=== PATIENT | female | born 1940 | race Caucasian/White ===

== ENCOUNTER → 2016-12-13 | Outpatient (REF) | payer MEDICARE, OTHER ==
[2016-12-13 13:49] LABS: PERCENT SATURATION 24.5 % (13.2-37.4)
== END ==
LOC: M LAB REF 12:33
PROVIDERS: ATTEND Internal Medicine Medical Oncology
DX: D50.9 Iron deficiency anemia, unspecified (principal)

== ENCOUNTER → 2017-02-06 | Outpatient (CLI) | payer MEDICARE, BC, OTHER ==
[2017-02-06 15:06] LABS: MEAN CORPUSCULAR HEMOGLOBIN 31.6 pg (27.0-33.0); MEAN CORPUSCULAR VOLUME 95.8 fl (80.0-96.0); RED CELL DISTRIBUTION WIDTH 14.6 % (11.5-14.5); RETIC HEMOGLOBIN CONTENT CHr 32.8 PG (24-36); RETICULOCYTE % ADVIA2120 5.4 % (0.5-1.5); WHITE BLOOD COUNT 9.8 K/mm3 (4.0-10.0)
[2017-02-06 15:41] LABS: CALCIUM LEVEL 9.7 MG/DL (8.8-10.2); CREATININE FOR GFR 1.67 MG/DL (0.55-1.02); GLOMERULAR FILTRATION RATE 31.8 (>39); PERCENT SATURATION 17.9 % (13.2-37.4); POTASSIUM SERUM 3.9 MEQ/L (3.5-5.1)
== END ==
LOC: M LAB 14:03
PROVIDERS: ATTEND Internal Medicine Critical Care Medicine
DX: I50.9 Heart failure, unspecified (principal)

== ENCOUNTER → 2017-02-15 | Outpatient (REF) | payer MEDICARE, BC, OTHER | LOC: M LAB REF 16:09 | PROVIDERS: ATTEND Internal Medicine Medical Oncology | DX: D50.9 Iron deficiency anemia, unspecified (principal) ==

== ENCOUNTER → 2017-02-22 | Outpatient (REF) | payer MEDICARE, OTHER ==
[2017-02-22 20:01] LABS: PERCENT SATURATION 9.7 % (13.2-37.4)
== END ==
LOC: M LAB REF 17:17
PROVIDERS: ATTEND Internal Medicine Medical Oncology
DX: D50.9 Iron deficiency anemia, unspecified (principal)

== ENCOUNTER → 2017-03-08 | Outpatient (REF) | payer MEDICARE, OTHER ==
[2017-03-08 19:11] LABS: RETIC HEMOGLOBIN CONTENT CHr 30.5 PG (24-36); RETICULOCYTE % ADVIA2120 4.2 % (0.5-1.5)
[2017-03-08 19:24] LABS: PERCENT SATURATION 11.9 % (13.2-37.4)
== END ==
LOC: M LAB REF 16:57
PROVIDERS: ATTEND Internal Medicine Medical Oncology
DX: D50.9 Iron deficiency anemia, unspecified (principal)

== ENCOUNTER → 2017-04-05 | Outpatient (REF) | payer MEDICARE, OTHER ==
[2017-04-05 14:33] LABS: PERCENT SATURATION 16.5 % (13.2-37.4)
== END ==
LOC: M LAB REF 14:03
PROVIDERS: ATTEND Internal Medicine Medical Oncology
DX: D50.9 Iron deficiency anemia, unspecified (principal)

== ENCOUNTER → 2017-05-04 | Outpatient (REF) | payer MEDICARE, OTHER ==
[2017-05-04 19:37] LABS: PERCENT SATURATION 21.5 % (13.2-37.4)
== END ==
LOC: M LAB REF 16:52
PROVIDERS: ATTEND Internal Medicine Medical Oncology
DX: D50.9 Iron deficiency anemia, unspecified (principal)

== ENCOUNTER → 2017-06-12 | Outpatient (REF) | payer MEDICARE, OTHER | LOC: M LAB REF 18:30 | PROVIDERS: ATTEND Internal Medicine Medical Oncology | DX: D50.9 Iron deficiency anemia, unspecified (principal) ==

== ENCOUNTER → 2017-07-13 | Outpatient (REF) | payer MEDICARE, OTHER ==
[2017-07-13 18:25] LABS: PERCENT SATURATION 16.7 % (13.2-45.0)
== END ==
LOC: M LAB REF 17:27
PROVIDERS: ATTEND Internal Medicine Medical Oncology
DX: D50.9 Iron deficiency anemia, unspecified (principal)

== ENCOUNTER → 2017-07-24 | Outpatient (CLI) | payer MEDICARE, OTHER ==
[2017-07-24 15:39] LABS: CALCIUM LEVEL 9.7 MG/DL (8.8-10.2); CREATININE FOR GFR 2.09 MG/DL (0.55-1.02); GLOMERULAR FILTRATION RATE 24.5 (>39); POTASSIUM SERUM 4.8 MEQ/L (3.5-5.1)
== END ==
LOC: M LAB 14:27
PROVIDERS: ATTEND Internal Medicine Critical Care Medicine
DX: D64.9 Anemia, unspecified (principal); I27.2 Other secondary pulmonary hypertension

== ENCOUNTER → 2017-08-14 | Outpatient (REF) | payer MEDICARE, OTHER | LOC: M LAB REF 17:04 | PROVIDERS: ATTEND Internal Medicine Medical Oncology | DX: D50.9 Iron deficiency anemia, unspecified (principal) ==

== ENCOUNTER → 2017-09-05 | Outpatient (CLI) | payer MEDICARE, BC, OTHER ==
[2017-09-05 14:39] LABS: MEAN CORPUSCULAR HEMOGLOBIN 30.3 pg (27.0-33.0); MEAN CORPUSCULAR HGB CONC 32.5 g/dl (32.0-36.5); MEAN CORPUSCULAR VOLUME 93.3 fl (80.0-96.0); WHITE BLOOD COUNT 9.4 10^3/uL (4.0-10.0)
[2017-09-05 14:51] LABS: INR 0.97
[2017-09-05 15:05] LABS: CALCIUM LEVEL 9.7 MG/DL (8.8-10.2); CREATININE FOR GFR 2.04 MG/DL (0.55-1.02); GLOMERULAR FILTRATION RATE 25.2 (>39); POTASSIUM SERUM 4.3 MEQ/L (3.5-5.1)
--- NOTE | 2017-09-05 17:00 | ECGEPIP ---
Stationary ECG Study [facility] Test Date: 2017-09-05 Pat Name: TYRONE RAMÍREZ Department: Room: - Gender: F [employer]: [employer] : 1940 Requested By: Other CDS - complete info on Order Number: [id number] Reading MD: Mckenzie Palumbo Measurements Intervals [place] Rate: 80 P: 76 [place]: 179 QRS: 75 QRSD: 77 T: 52 QT: 345 QTc: 399 Interpretive Statements SINUS RHYTHM LEFT ATRIAL ENLARGEMENT ST DEVIATION AND MODERATE T-WAVE ABNORMALITY, CONSIDER ANTERIOR ISCHEMIA MORE EXTENSIVE INFERIOR QS NOT PATHOLOGIC ON THIS TRACING C/W 04/16/12 Electronically Signed On 09-05-2017 17:00:44 EDT by Mckenzie Palumbo
== END ==
LOC: M LAB 13:58
PROVIDERS: ATTEND Internal Medicine
DX: I27.24 Chronic thromboembolic pulmonary hypertension (principal); Z79.899 Other long term (current) drug therapy

== ENCOUNTER → 2017-11-15 | Outpatient (REF) | payer MEDICARE, OTHER ==
[2017-11-15 14:20] LABS: PERCENT SATURATION 21.2 % (13.2-45.0)
== END ==
LOC: M LAB REF 13:30
PROVIDERS: ATTEND Internal Medicine Medical Oncology
DX: D50.9 Iron deficiency anemia, unspecified (principal)

== ENCOUNTER → 2017-12-14 | Outpatient (REF) | payer MEDICARE, OTHER ==
[2017-12-14 14:41] LABS: FERRITIN 648 NG/ML (8-252); IRON (FE) 73 UG/DL (50-170); PERCENT SATURATION 21.2 % (13.2-45.0); TOTAL IRON BINDING CAPACITY 345 UG/DL (250-450)
== END ==
LOC: M LAB REF 14:00
DX: D50.9 Iron deficiency anemia, unspecified (principal)
CPT/HCPCS: 83550

== ENCOUNTER → 2018-02-22 | Outpatient (REF) | payer MEDICARE, OTHER ==
[2018-02-22 14:01] LABS: FERRITIN 310 NG/ML (8-252); IRON (FE) 63 UG/DL (50-170); PERCENT SATURATION 20.2 % (13.2-45.0); TOTAL IRON BINDING CAPACITY 312 UG/DL (250-450)
== END ==
LOC: M LAB REF 13:28
DX: D50.9 Iron deficiency anemia, unspecified (principal)
CPT/HCPCS: 83550

== ENCOUNTER → 2018-04-19 | Outpatient (REF) | payer MEDICARE, OTHER ==
[2018-04-19 15:26] LABS: FERRITIN 348 NG/ML (8-252); IRON (FE) 53 UG/DL (50-170); PERCENT SATURATION 14.7 % (13.2-45.0); TOTAL IRON BINDING CAPACITY 360 UG/DL (250-450)
== END ==
LOC: M LAB REF 13:27
DX: E61.1 Iron deficiency (principal)
CPT/HCPCS: 83550

== ENCOUNTER → 2018-05-10 | Outpatient (CLI) | payer MEDICARE, OTHER, BC ==
[2018-05-10 15:39] LABS: ANION GAP 9 MEQ/L (8-16); BLOOD UREA NITROGEN 43 MG/DL (7-18); CALCIUM LEVEL 9.4 MG/DL (8.8-10.2); CARBON DIOXIDE LEVEL 27 MEQ/L (21-32); CHLORIDE LEVEL 105 MEQ/L (98-107); CREATININE FOR GFR 1.71 MG/DL (0.55-1.30); FERRITIN 314 NG/ML (8-252); GLOMERULAR FILTRATION RATE 30.8 (>39); GLUCOSE, FASTING 97 MG/DL (70-100); IRON (FE) 38 UG/DL (50-170); NT-PRO BNP 1284 PG/ML (<450); PERCENT SATURATION 11.2 % (13.2-45.0); POTASSIUM SERUM 4.3 MEQ/L (3.5-5.1); SODIUM LEVEL 141 MEQ/L (136-145); TOTAL IRON BINDING CAPACITY 338 UG/DL (250-450)
== END ==
LOC: M LAB 14:03
DX: I27.29 Other secondary pulmonary hypertension (principal); D50.0 Iron deficiency anemia secondary to blood loss (chronic)
CPT/HCPCS: 83550

== ENCOUNTER → 2018-05-11 | Outpatient (CLI) | payer MEDICARE, BC, OTHER ==
[2018-05-11 15:31] LABS: HEMATOCRIT 29.8 % (36.0-47.0); HEMOGLOBIN 9.4 g/dl (12.0-15.5); MEAN CORPUSCULAR HEMOGLOBIN 29.5 pg (27.0-33.0); MEAN CORPUSCULAR HGB CONC 31.5 g/dl (32.0-36.5); MEAN CORPUSCULAR VOLUME 93.4 fl (80.0-96.0); PLATELET COUNT, AUTOMATED 305 10^3/uL (150-450); RED BLOOD COUNT 3.19 10^6/uL (4.00-5.40); RED CELL DISTRIBUTION WIDTH 14.4 % (11.5-14.5); WHITE BLOOD COUNT 9.1 10^3/uL (4.0-10.0)
== END ==
LOC: M LAB 15:09
DX: D50.0 Iron deficiency anemia secondary to blood loss (chronic) (principal)
CPT/HCPCS: 85027

== ENCOUNTER → 2018-06-15 | Outpatient (REF) | payer MEDICARE, OTHER ==
[2018-06-15 14:25] LABS: FERRITIN 414 NG/ML (8-252); IRON (FE) 53 UG/DL (50-170); PERCENT SATURATION 14.8 % (13.2-45.0); TOTAL IRON BINDING CAPACITY 359 UG/DL (250-450)
== END ==
LOC: M LAB REF 13:11
DX: E61.1 Iron deficiency (principal)
CPT/HCPCS: 83550

== ENCOUNTER → 2018-07-17 | Outpatient (CLI) | payer MEDICARE, OTHER, BC ==
[2018-07-17 13:04] LABS: HEMATOCRIT 31.1 % (36.0-47.0); HEMOGLOBIN 10.1 g/dl (12.0-15.5); MEAN CORPUSCULAR HEMOGLOBIN 29.6 pg (27.0-33.0); MEAN CORPUSCULAR HGB CONC 32.5 g/dl (32.0-36.5); MEAN CORPUSCULAR VOLUME 91.2 fl (80.0-96.0); PLATELET COUNT, AUTOMATED 317 10^3/uL (150-450); RED BLOOD COUNT 3.41 10^6/uL (4.00-5.40); RED CELL DISTRIBUTION WIDTH 15.4 % (11.5-14.5)
[2018-07-17 13:20] LABS: INR 1.05; PROTHROMBIN TIME 13.8 SECONDS (12.1-14.4)
[2018-07-17 13:33] LABS: ANION GAP 8 MEQ/L (8-16); BLOOD UREA NITROGEN 81 MG/DL (7-18); CALCIUM LEVEL 9.2 MG/DL (8.8-10.2); CARBON DIOXIDE LEVEL 26 MEQ/L (21-32); CHLORIDE LEVEL 100 MEQ/L (98-107); CREATININE FOR GFR 2.22 MG/DL (0.55-1.30); GLOMERULAR FILTRATION RATE 22.8 (>39); GLUCOSE, FASTING 102 MG/DL (70-100); POTASSIUM SERUM 4.8 MEQ/L (3.5-5.1); SODIUM LEVEL 134 MEQ/L (136-145)
== END ==
LOC: M LAB 12:15
DX: I27.24 Chronic thromboembolic pulmonary hypertension (principal)
CPT/HCPCS: 93005

== ENCOUNTER → 2018-08-07 | Outpatient (REF) | payer MEDICARE, OTHER, BC ==
[2018-08-07 20:04] LABS: FERRITIN 518 NG/ML (8-252); IRON (FE) 44 UG/DL (50-170); TOTAL IRON BINDING CAPACITY 316 UG/DL (250-450)
[2018-08-07 20:30] LABS: PERCENT SATURATION 13.9 % (13.2-45.0)
== END ==
LOC: M LAB REF 17:08
DX: D50.9 Iron deficiency anemia, unspecified (principal)
CPT/HCPCS: 83550

== ENCOUNTER → 2018-09-11 | Outpatient (CLI) | payer MEDICARE, BC, OTHER ==
[2018-09-11 14:52] LABS: INR 0.96; PROTHROMBIN TIME 12.9 SECONDS (12.1-14.4)
== END ==
LOC: M LAB 13:35
DX: I27.24 Chronic thromboembolic pulmonary hypertension (principal); Z79.01 Long term (current) use of anticoagulants
CPT/HCPCS: 93005

== ENCOUNTER → 2018-09-12 | Outpatient (REF) | payer MEDICARE, OTHER ==
[2018-09-12 13:00] LABS: HEMATOCRIT 29.2 % (36.0-47.0); MEAN CORPUSCULAR HEMOGLOBIN 29.9 pg (27.0-33.0); MEAN CORPUSCULAR HGB CONC 30.8 g/dl (32.0-36.5); PLATELET COUNT, AUTOMATED 344 10^3/uL (150-450); RED BLOOD COUNT 3.01 10^6/uL (4.00-5.40); RED CELL DISTRIBUTION WIDTH 15.9 % (11.5-14.5)
== END ==
LOC: M LAB REF 12:42
DX: I27.24 Chronic thromboembolic pulmonary hypertension (principal); Z79.01 Long term (current) use of anticoagulants
CPT/HCPCS: 85027

== ENCOUNTER → 2018-09-14 | Outpatient (CLI) | payer MEDICARE, OTHER ==
[2018-09-14 14:09] LABS: ANION GAP 11 MEQ/L (8-16); BLOOD UREA NITROGEN 53 MG/DL (7-18); CALCIUM LEVEL 8.8 MG/DL (8.8-10.2); CARBON DIOXIDE LEVEL 25 MEQ/L (21-32); CHLORIDE LEVEL 103 MEQ/L (98-107); CREATININE FOR GFR 2.17 MG/DL (0.55-1.30); GLOMERULAR FILTRATION RATE 23.4 (>39); GLUCOSE, FASTING 89 MG/DL (70-100); NT-PRO BNP 1700 PG/ML (<450); POTASSIUM SERUM 4.9 MEQ/L (3.5-5.1); SODIUM LEVEL 139 MEQ/L (136-145)
== END ==
LOC: M LAB 12:24
DX: I27.24 Chronic thromboembolic pulmonary hypertension (principal)
CPT/HCPCS: 80048

== ENCOUNTER → 2018-09-20 | Outpatient (CLI) | payer MEDICARE, OTHER ==
[2018-09-20 13:45] LABS: ANION GAP 13 MEQ/L (8-16); BLOOD UREA NITROGEN 41 MG/DL (7-18); CALCIUM LEVEL 8.9 MG/DL (8.8-10.2); CARBON DIOXIDE LEVEL 22 MEQ/L (21-32); CHLORIDE LEVEL 107 MEQ/L (98-107); CREATININE FOR GFR 2.07 MG/DL (0.55-1.30); GLOMERULAR FILTRATION RATE 24.7 (>39); GLUCOSE, FASTING 105 MG/DL (70-100); POTASSIUM SERUM 4.2 MEQ/L (3.5-5.1); SODIUM LEVEL 142 MEQ/L (136-145)
== END ==
LOC: M LAB 13:05
DX: N28.9 Disorder of kidney and ureter, unspecified (principal); I27.24 Chronic thromboembolic pulmonary hypertension
CPT/HCPCS: 80048

== ENCOUNTER → 2018-10-02 | Outpatient (REF) | payer MEDICARE, BC, OTHER ==
[2018-10-02 13:30] LABS: ALBUMIN 4.1 GM/DL (3.2-5.2); ALBUMIN/GLOBULIN RATIO 1.28 (1.00-1.93); ALKALINE PHOSPHATASE 103 U/L (45-117); ALT/SGPT 13 U/L (12-78); ANION GAP 10 MEQ/L (8-16); AST/SGOT 13 U/L (7-37); BILIRUBIN,TOTAL 0.2 MG/DL (0.2-1.0); BLOOD UREA NITROGEN 58 MG/DL (7-18); CALCIUM LEVEL 9.2 MG/DL (8.8-10.2); CARBON DIOXIDE LEVEL 28 MEQ/L (21-32); CHLORIDE LEVEL 98 MEQ/L (98-107); CREATININE FOR GFR 2.39 MG/DL (0.55-1.30); GLOMERULAR FILTRATION RATE 20.9 (>39); GLUCOSE, FASTING 95 MG/DL (70-100); POTASSIUM SERUM 3.9 MEQ/L (3.5-5.1); SODIUM LEVEL 136 MEQ/L (136-145); TOTAL PROTEIN 7.3 GM/DL (6.4-8.2)
== END ==
LOC: M LAB REF 11:47
DX: D64.9 Anemia, unspecified (principal)
CPT/HCPCS: 80053

== ENCOUNTER → 2018-12-08 | Outpatient (CLI) | payer MEDICARE, BC, OTHER ==
[~2018-12-08] MED LIST: ADCI20TA PO; ELIQ2.5T PO; GABA-1171 PO; LETA1TAB PO; OMEP40CA2 PO; SPIR50TA4 PO; TORS100T PO; [UNRECOGNIZED DRUG - CODE] PO
[2018-12-08 14:28] LABS: HEMATOCRIT 33.2 % (36.0-47.0); HEMOGLOBIN 10.7 g/dl (12.0-15.5); MEAN CORPUSCULAR HEMOGLOBIN 29.5 pg (27.0-33.0); MEAN CORPUSCULAR HGB CONC 32.2 g/dl (32.0-36.5); MEAN CORPUSCULAR VOLUME 91.5 fl (80.0-96.0); PLATELET COUNT, AUTOMATED 296 10^3/uL (150-450); RED BLOOD COUNT 3.63 10^6/uL (4.00-5.40)
[2018-12-08 14:52] LABS: CALCIUM LEVEL 9.1 MG/DL (8.8-10.2); CREATININE FOR GFR 2.41 MG/DL (0.55-1.30); GLOMERULAR FILTRATION RATE 20.7 (>39); PERCENT SATURATION 39.5 % (13.2-45.0)
== END ==
LOC: M LAB 13:59
PROVIDERS: ATTEND Internal Medicine Critical Care Medicine
DX: R06.00 Dyspnea, unspecified (principal); D64.9 Anemia, unspecified

== ENCOUNTER → 2019-02-27 | Outpatient (CLI) | payer MEDICARE, BC, OTHER ==
[2019-02-27 15:05] LABS: INR 1.01; PROTHROMBIN TIME 13.4 SECONDS (12.1-14.4)
[2019-02-27 15:16] LABS: CALCIUM LEVEL 8.8 MG/DL (8.8-10.2); CREATININE FOR GFR 1.83 MG/DL (0.55-1.30); GLOMERULAR FILTRATION RATE 28.4 (>39); POTASSIUM SERUM 4.6 MEQ/L (3.5-5.1)
--- NOTE | 2019-02-27 15:26 | ECGEPIP ---
Stationary ECG Study [facility] Test Date: 2019-02-27 Pat Name: TYRONE RAMÍREZ Department: Room: - Gender: F Workers Compensation Claims Examiner: [facility] : 1940 Requested By: Monet Shelley Order Number: [id number] Reading MD: Mckenzie Palumbo Measurements Intervals [place] Rate: 89 P: 71 [place]: 186 QRS: 52 QRSD: 85 T: 55 QT: 344 QTc: 420 Interpretive Statements SINUS RHYTHM LEFT ATRIAL ENLARGEMENT POSSIBLE INFERIOR MYOCARDIAL INFARCTION, PROBABLY OLD NEW Q AVF MODERATE T-WAVE ABNORMALITY, CONSIDER SEPTAL ISCHEMIA NEW Q AVF C/W 09/11/18 Electronically Signed On 02-27-2019 15:26:26 EDT by Mckenzie Palumbo
[2019-02-27 15:58] LABS: HEMATOCRIT 31.1 % (36.0-47.0); HEMOGLOBIN 9.6 g/dl (12.0-15.5); MEAN CORPUSCULAR HGB CONC 30.9 g/dl (32.0-36.5); PLATELET COUNT, AUTOMATED 305 10^3/uL (150-450); RED BLOOD COUNT 3.31 10^6/uL (4.00-5.40); WHITE BLOOD COUNT 6.3 10^3/uL (4.0-10.0)
== END ==
LOC: M LAB 13:45
PROVIDERS: ATTEND Internal Medicine Pulmonary Disease
DX: I27.20 Pulmonary hypertension, unspecified (principal); Z01.818 Encounter for other preprocedural examination

== ENCOUNTER → 2019-03-21 | Outpatient (CLI) | payer MEDICARE, BC, OTHER ==
[2019-03-21 14:13] LABS: HEMATOCRIT 28.1 % (36.0-47.0); HEMOGLOBIN 8.8 g/dl (12.0-15.5); MEAN CORPUSCULAR HEMOGLOBIN 29.7 pg (27.0-33.0); MEAN CORPUSCULAR HGB CONC 31.3 g/dl (32.0-36.5); MEAN CORPUSCULAR VOLUME 94.9 fl (80.0-96.0); PLATELET COUNT, AUTOMATED 251 10^3/uL (150-450); RED BLOOD COUNT 2.96 10^6/uL (4.00-5.40); WHITE BLOOD COUNT 8.2 10^3/uL (4.0-10.0)
[2019-03-21 14:45] LABS: CALCIUM LEVEL 9.2 MG/DL (8.8-10.2); CREATININE FOR GFR 1.81 MG/DL (0.55-1.30); GLOMERULAR FILTRATION RATE 28.8 (>39)
== END ==
LOC: M LAB 13:20
DX: I27.24 Chronic thromboembolic pulmonary hypertension (principal); Z01.818 Encounter for other preprocedural examination

== ENCOUNTER → 2019-04-02 | Outpatient (CLI) | payer MEDICARE, BC, OTHER ==
[2019-04-02 14:37] LABS: HEMATOCRIT 25.3 % (36.0-47.0); HEMOGLOBIN 7.8 g/dl (12.0-15.5); MEAN CORPUSCULAR HEMOGLOBIN 29.3 pg (27.0-33.0); MEAN CORPUSCULAR HGB CONC 30.8 g/dl (32.0-36.5); MEAN CORPUSCULAR VOLUME 95.1 fl (80.0-96.0); PLATELET COUNT, AUTOMATED 292 10^3/uL (150-450); RED BLOOD COUNT 2.66 10^6/uL (4.00-5.40); WHITE BLOOD COUNT 7.7 10^3/uL (4.0-10.0)
[2019-04-02 15:07] LABS: CALCIUM LEVEL 8.3 MG/DL (8.8-10.2); CREATININE FOR GFR 1.95 MG/DL (0.55-1.30); GLOMERULAR FILTRATION RATE 26.4 (>39); POTASSIUM SERUM 4.4 MEQ/L (3.5-5.1)
== END ==
LOC: M LAB 13:50
PROVIDERS: ATTEND Nurse Practitioner Acute Care
DX: I27.24 Chronic thromboembolic pulmonary hypertension (principal)

== ENCOUNTER → 2019-06-26 | Outpatient (CLI) | payer MEDICARE, BC, OTHER ==
--- NOTE | 2019-06-26 09:17 | REP ---
Clinical: Chronic stage IV renal disease and hypotension. Technique: Love scale and color Doppler evaluation of the kidneys and renal vasculature using curved array transducer. Findings: The kidneys are normal in reniform shape with increased central sinus fat and no evidence for hydronephrosis. Right kidney measures 9.7 x 4.8 x 4.8 cm . Left kidney measures 10.1 x 4.3 x 4.2 cm and demonstrates extrarenal pelvis . Bladder is incompletely distended and grossly normal by current evaluation. Color Doppler evaluation of the renal vasculature demonstrates normal arterial wave patterns, velocities, renal aortic ratios, resistive indices and the acceleration time. No sonographic evidence for renal arterial stenosis noted. Renal vein is patent. Right Kidney: Peak arterial velocity: 145 cm/sec . Renal aortic ratio: 1.4 . Resistive indices: 0.89 - 0.91 . Acceleration times: 0.04 - 0.05 . Left kidney: Peak arterial velocity: 153 cm/sec . Renal aortic ratio: 1.5 . Resistive indices: 0.86 - 0.88 . Acceleration times: 0.04 . Impression: 1. Findings consistent with chronic medical renal disease. 2. No evidence for renal arterial stenosis. Electronically Signed by Eligio Munson MD 06/26/2019 09:08 A
== END ==
LOC: M RAD 07:29
PROVIDERS: ATTEND Internal Medicine Nephrology
DX: I15.0 Renovascular hypertension (principal); N18.4 Chronic kidney disease, stage 4 (severe)

== ENCOUNTER → 2019-08-29 | Outpatient (REF) | payer MEDICARE, OTHER ==
[~2019-08-29] MED LIST changes: +AMIT25TA PO; +METO5TA PO
[2019-08-29 18:04] LABS: PERCENT SATURATION 15.5 % (13.2-45.0)
== END ==
LOC: M LAB REF 16:50
PROVIDERS: ATTEND Internal Medicine Nephrology
DX: D50.9 Iron deficiency anemia, unspecified (principal)

== ENCOUNTER → 2019-12-30 | Outpatient (REF) | payer MEDICARE, OTHER ==
[~2019-12-30] MED LIST changes: +FLON1SPR NARES; -OMEP40CA2 PO; +OMEP40CA97 PO
[2019-12-30 18:04] LABS: PERCENT SATURATION 96.6 % (13.2-45.0)
== END ==
LOC: M LAB REF 16:48
PROVIDERS: ATTEND Internal Medicine Nephrology
DX: D50.9 Iron deficiency anemia, unspecified (principal)

== ENCOUNTER → 2020-03-17 | Outpatient (CLI) | payer MEDICARE, OTHER ==
[2020-03-17 14:04] LABS: BASO % 0.5 % (0.0-1.0); EOS # 0.7 10^3/uL (0.0-0.5); EOS % 9.4 % (0.0-3.0); HEMATOCRIT 35.4 % (36.0-47.0); HEMOGLOBIN 11.4 g/dl (12.0-15.5); LYMPH # 1.2 10^3/uL (1.5-5.0); LYMPH % 16.5 % (24.0-44.0); MEAN CORPUSCULAR HEMOGLOBIN 30.2 pg (27.0-33.0); MEAN CORPUSCULAR HGB CONC 32.2 g/dl (32.0-36.5); MEAN CORPUSCULAR VOLUME 93.9 fl (80.0-96.0); MONO # 0.6 10^3/uL (0.0-0.8); MONO % 7.9 % (0.0-5.0); NEUTROPHILS # 4.8 10^3/uL (1.5-8.5); NEUTROPHILS % 65.4 % (36.0-66.0); PLATELET COUNT, AUTOMATED 287 10^3/uL (150-450); RED BLOOD COUNT 3.77 10^6/uL (4.00-5.40); WHITE BLOOD COUNT 7.3 10^3/uL (4.0-10.0)
== END ==
LOC: M LAB 13:28
PROVIDERS: ATTEND Internal Medicine Hematology
DX: D50.0 Iron deficiency anemia secondary to blood loss (chronic) (principal)

== ENCOUNTER → 2020-04-23 | Outpatient (REF) | payer MEDICARE, OTHER ==
[2020-04-23 19:43] LABS: PERCENT SATURATION 15.7 % (13.2-45.0)
== END ==
LOC: M LAB REF 16:43
PROVIDERS: ATTEND Internal Medicine Nephrology
DX: D50.9 Iron deficiency anemia, unspecified (principal)

== ENCOUNTER → 2021-09-13 | Outpatient (CLI) | payer MEDICARE, BC, OTHER ==
[~2021-09-13] MED LIST changes: -AMIT25TA PO; +AMIT25TA17 PO; +CALC1CAP31 PO; +OMEP40CA4 PO; -OMEP40CA97 PO; +TORS20TA2 PO
[2021-09-13 14:31] LABS: HEMATOCRIT 30.1 % (36.0-47.0); HEMOGLOBIN 9.5 g/dl (12.0-15.5); MEAN CORPUSCULAR HEMOGLOBIN 30.4 pg (27.0-33.0); MEAN CORPUSCULAR HGB CONC 31.6 g/dl (32.0-36.5); MEAN CORPUSCULAR VOLUME 96.5 fl (80.0-96.0); PLATELET COUNT, AUTOMATED 271 10^3/uL (150-450); RED BLOOD COUNT 3.12 10^6/uL (4.00-5.40); WHITE BLOOD COUNT 5.8 10^3/uL (4.0-10.0)
[2021-09-13 15:02] LABS: CALCIUM LEVEL 9.1 MG/DL (8.8-10.2); CREATININE FOR GFR 1.8 MG/DL (0.55-1.30); GLOMERULAR FILTRATION RATE 28.8 (>32); PERCENT SATURATION 16.8 % (13.2-45.0); POTASSIUM SERUM 4.7 MEQ/L (3.5-5.1)
== END ==
LOC: M LAB 12:54
PROVIDERS: ATTEND Internal Medicine Critical Care Medicine
DX: E61.1 Iron deficiency (principal); I50.9 Heart failure, unspecified; Z79.899 Other long term (current) drug therapy

== ENCOUNTER → 2022-07-13 | Outpatient (CLI) | payer MEDICARE, BC, OTHER ==
[~2022-07-13] MED LIST changes: +SPIR-10 PO
== END ==
LOC: M LABSMTC 10:54
PROVIDERS: ATTEND Anesthesiology
DX: Z11.52 Encounter for screening for COVID-19 (principal)

== ENCOUNTER 2022-07-18 07:35 | Day surgery (SDC) | payer MEDICARE, BC, OTHER ==
[~2022-07-18] VITALS: Ht 167.6 cm; Wt 68.5 kg
[~2022-07-18 07:35] MED LIST changes: +NS 1,000 ML IV ONE
[2022-07-18 08:06] VITALS: BP 162/70
== END 2022-07-18 08:46 | disposition home or self-care (01) ==
LOC: M OPP 07:35
PROVIDERS: ATTEND Internal Medicine Gastroenterology
DX: D50.9 Iron deficiency anemia, unspecified (principal); Z86.010 Personal history of colon polyps; Z53.09 Procedure and treatment not carried out because of other contraindication

== ENCOUNTER → 2022-07-26 | Outpatient (REF) | payer MEDICARE, OTHER ==
[~2022-07-26] MED LIST changes: -NS 1,000 ML IV ONE
[2022-07-26 18:26] LABS: PERCENT SATURATION 14.4 % (13.2-45.0)
== END ==
LOC: M LAB REF 17:22
DX: E61.1 Iron deficiency (principal); I50.9 Heart failure, unspecified

== ENCOUNTER → 2022-09-05 | Outpatient (CLI) | payer MEDICARE, BC, OTHER ==
[2022-09-05 20:34] LABS: CALCIUM LEVEL 9.4 MG/DL (8.8-10.2); CREATININE FOR GFR 2.03 MG/DL (0.55-1.30); POTASSIUM SERUM 4.5 MEQ/L (3.5-5.1)
== END ==
LOC: M WUC 15:07
PROVIDERS: ATTEND Internal Medicine Critical Care Medicine
DX: E61.1 Iron deficiency (principal); I50.9 Heart failure, unspecified

== ENCOUNTER → 2022-10-10 | Outpatient (REF) | payer MEDICARE, BC, OTHER ==
[~2022-10-10] MED LIST changes: +OCTR100I
[2022-10-10 13:01] LABS: HEMATOCRIT 32.9 % (36.0-47.0); HEMOGLOBIN 10.2 g/dl (12.0-15.5); MEAN CORPUSCULAR HEMOGLOBIN 29.9 pg (27.0-33.0); MEAN CORPUSCULAR VOLUME 96.5 fl (80.0-96.0); PLATELET COUNT, AUTOMATED 268 10^3/uL (150-450); RED BLOOD COUNT 3.41 10^6/uL (4.00-5.40); WHITE BLOOD COUNT 5.1 10^3/uL (4.0-10.0)
[2022-10-10 13:50] LABS: CALCIUM LEVEL 9.2 MG/DL (8.8-10.2); CREATININE FOR GFR 1.9 MG/DL (0.55-1.30); PERCENT SATURATION 16.6 % (13.2-45.0); POTASSIUM SERUM 3.8 MEQ/L (3.5-5.1)
== END ==
LOC: M LAB REF 11:55
PROVIDERS: ATTEND Internal Medicine Critical Care Medicine
DX: I50.810 Right heart failure, unspecified (principal); Z99.89 Dependence on other enabling machines and devices; G47.33 Obstructive sleep apnea (adult) (pediatric); I27.29 Other secondary pulmonary hypertension; Q27.30 Arteriovenous malformation, site unspecified

== ENCOUNTER → 2022-10-27 | Outpatient (REF) | payer MEDICARE, OTHER ==
[2022-10-27 18:36] LABS: PERCENT SATURATION 14.3 % (13.2-45.0)
[2022-10-27 18:37] LABS: FERRITIN 219.9 NG/ML (7.3-270.7)
[2022-10-31 16:43] LABS: CALCIUM LEVEL 8.9 MG/DL (8.3-10.6); CREATININE FOR GFR 1.87 MG/DL (0.55-1.30); GLOMERULAR FILTRATION RATE 27.5 (>32)
== END ==
LOC: M LAB REF 16:39
PROVIDERS: ATTEND Internal Medicine Critical Care Medicine
DX: I27.24 Chronic thromboembolic pulmonary hypertension (principal); G47.33 Obstructive sleep apnea (adult) (pediatric); I50.810 Right heart failure, unspecified; Q27.30 Arteriovenous malformation, site unspecified; Z99.89 Dependence on other enabling machines and devices

== ENCOUNTER → 2022-12-14 | Outpatient (CLI) | payer MEDICARE, BC, OTHER ==
[2022-12-14 19:33] LABS: HEMATOCRIT 34.8 % (36.0-47.0); HEMOGLOBIN 10.7 g/dl (12.0-15.5); MEAN CORPUSCULAR HEMOGLOBIN 30.8 pg (27.0-33.0); MEAN CORPUSCULAR HGB CONC 30.7 g/dl (32.0-36.5); MEAN CORPUSCULAR VOLUME 100.3 fl (80.0-96.0); PLATELET COUNT, AUTOMATED 310 10^3/uL (150-450); RED BLOOD COUNT 3.47 10^6/uL (4.00-5.40); WHITE BLOOD COUNT 6.6 10^3/uL (4.0-10.0)
[2022-12-14 19:35] LABS: CALCIUM LEVEL 9.1 MG/DL (8.3-10.6); CREATININE FOR GFR 1.61 MG/DL (0.55-1.30); GLOMERULAR FILTRATION RATE 32.7 (>32); PERCENT SATURATION 21.3 % (13.2-45.0); POTASSIUM SERUM 3.7 MMOL/L (3.5-5.1)
[2022-12-14 19:39] LABS: FERRITIN 564.4 NG/ML (7.3-270.7)
== END ==
LOC: M WUC 15:39
PROVIDERS: ATTEND Internal Medicine Critical Care Medicine
DX: G47.33 Obstructive sleep apnea (adult) (pediatric) (principal); Z99.89 Dependence on other enabling machines and devices; I50.810 Right heart failure, unspecified; I27.24 Chronic thromboembolic pulmonary hypertension

== ENCOUNTER → 2023-03-27 | Outpatient (CLI) | payer MEDICARE, BC, OTHER ==
[2023-03-27 15:17] LABS: HEMATOCRIT 32.3 % (36.0-47.0); HEMOGLOBIN 9.8 g/dl (12.0-15.5); MEAN CORPUSCULAR HEMOGLOBIN 30.8 pg (27.0-33.0); MEAN CORPUSCULAR HGB CONC 30.3 g/dl (32.0-36.5); MEAN CORPUSCULAR VOLUME 101.6 fl (80.0-96.0); PLATELET COUNT, AUTOMATED 254 10^3/uL (150-450); RED BLOOD COUNT 3.18 10^6/uL (4.00-5.40)
[2023-03-27 15:32] LABS: CALCIUM LEVEL 8.9 MG/DL (8.3-10.6); CREATININE FOR GFR 1.8 MG/DL (0.55-1.30); GLOMERULAR FILTRATION RATE 28.7 (>32); PERCENT SATURATION 12.9 % (13.2-45.0); POTASSIUM SERUM 4.1 MMOL/L (3.5-5.1)
[2023-03-27 15:34] LABS: FERRITIN 546.9 NG/ML (7.3-270.7)
== END ==
LOC: M LAB 13:46
PROVIDERS: ATTEND Internal Medicine Critical Care Medicine
DX: I27.24 Chronic thromboembolic pulmonary hypertension (principal); G47.33 Obstructive sleep apnea (adult) (pediatric); Q27.30 Arteriovenous malformation, site unspecified; I50.810 Right heart failure, unspecified; Z99.89 Dependence on other enabling machines and devices

== ENCOUNTER 2023-04-07 07:29 | Day surgery (SDC) | payer MEDICARE, BC, OTHER ==
[~2023-04-07] VITALS: Ht 170.2 cm; Wt 63.0 kg
[~2023-04-07 07:29] MED LIST changes: +NS 1,000 ML IV ONE
[2023-04-07] MEDS ORDERED: propofoL 200 MG/20 ML VIAL As Ordered ONE (08:28)
[2023-04-07] MEDS ORDERED: LIDOCAINE 2% 100MG/5ML SDV (FOR ANES.) As Ordered ONE (08:28)
[2023-04-07 09:50] VITALS: BP 155/69
== END 2023-04-07 10:00 | disposition home or self-care (01) ==
LOC: M OPP 07:29
PROVIDERS: ATTEND Internal Medicine Gastroenterology
DX: D12.6 Benign neoplasm of colon, unspecified (principal); K64.4 Residual hemorrhoidal skin tags; K64.8 Other hemorrhoids; K57.30 Diverticulosis of large intestine without perforation or abscess without bleeding; D50.9 Iron deficiency anemia, unspecified; K21.00 Gastro-esophageal reflux disease with esophagitis, without bleeding; K29.70 Gastritis, unspecified, without bleeding; K44.9 Diaphragmatic hernia without obstruction or gangrene; Z88.0 Allergy status to penicillin; Z88.5 Allergy status to narcotic agent; Z91.048 Other nonmedicinal substance allergy status

== ENCOUNTER → 2023-04-10 | Outpatient (REF) | payer MEDICARE, BC, OTHER ==
[~2023-04-10] MED LIST changes: -NS 1,000 ML IV ONE
[2023-04-10 12:42] LABS: FERRITIN 403.2 NG/ML (7.3-270.7)
== END ==
LOC: M LAB REF 12:13
PROVIDERS: ATTEND Family Medicine
DX: D64.9 Anemia, unspecified (principal)

== ENCOUNTER → 2023-05-05 | Outpatient (CLI) | payer MEDICARE, BC, OTHER ==
[2023-05-05 17:36] LABS: HEMATOCRIT 32.9 % (36.0-47.0); HEMOGLOBIN 10.2 g/dl (12.0-15.5); MEAN CORPUSCULAR HEMOGLOBIN 30.6 pg (27.0-33.0); MEAN CORPUSCULAR VOLUME 98.8 fl (80.0-96.0); PLATELET COUNT, AUTOMATED 270 10^3/uL (150-450); RED BLOOD COUNT 3.33 10^6/uL (4.00-5.40); WHITE BLOOD COUNT 5.5 10^3/uL (4.0-10.0)
[2023-05-05 17:47] LABS: CREATININE FOR GFR 1.64 MG/DL (0.55-1.30); FERRITIN 283.7 NG/ML (7.3-270.7); GLOMERULAR FILTRATION RATE 31.9 (>32); PERCENT SATURATION 11.4 % (13.2-45.0)
== END ==
LOC: M WUC 12:59
PROVIDERS: ATTEND Internal Medicine Gastroenterology
DX: D50.9 Iron deficiency anemia, unspecified (principal)

== ENCOUNTER → 2023-05-05 | Outpatient (CLI) | payer MEDICARE, BC, OTHER ==
[2023-05-05 17:38] LABS: HEMATOCRIT 33.2 % (36.0-47.0); HEMOGLOBIN 10.2 g/dl (12.0-15.5); MEAN CORPUSCULAR HEMOGLOBIN 30.4 pg (27.0-33.0); MEAN CORPUSCULAR HGB CONC 30.7 g/dl (32.0-36.5); MEAN CORPUSCULAR VOLUME 98.8 fl (80.0-96.0); PLATELET COUNT, AUTOMATED 274 10^3/uL (150-450); RED BLOOD COUNT 3.36 10^6/uL (4.00-5.40); WHITE BLOOD COUNT 5.5 10^3/uL (4.0-10.0)
[2023-05-05 17:47] LABS: CREATININE FOR GFR 1.66 MG/DL (0.55-1.30); FERRITIN 307.9 NG/ML (7.3-270.7); GLOMERULAR FILTRATION RATE 31.5 (>32); PERCENT SATURATION 13.1 % (13.2-45.0); POTASSIUM SERUM 4.2 MMOL/L (3.5-5.1)
== END ==
LOC: M WUC 13:05
DX: D50.0 Iron deficiency anemia secondary to blood loss (chronic) (principal)

== ENCOUNTER → 2023-06-14 | Outpatient (REF) | payer MEDICARE, BC, OTHER ==
[2023-06-14 21:49] LABS: HEMATOCRIT 27.9 % (36.0-47.0); HEMOGLOBIN 8.5 g/dl (12.0-15.5); MEAN CORPUSCULAR HEMOGLOBIN 30.2 pg (27.0-33.0); MEAN CORPUSCULAR HGB CONC 30.5 g/dl (32.0-36.5); MEAN CORPUSCULAR VOLUME 99.3 fl (80.0-96.0); PLATELET COUNT, AUTOMATED 336 10^3/uL (150-450); RED BLOOD COUNT 2.81 10^6/uL (4.00-5.40); WHITE BLOOD COUNT 5.8 10^3/uL (4.0-10.0)
[2023-06-14 22:54] LABS: PERCENT SATURATION 9.4 % (13.2-45.0)
[2023-06-14 22:57] LABS: FERRITIN 146.8 NG/ML (7.3-270.7)
== END ==
LOC: M LAB REF 21:33
PROVIDERS: ATTEND Internal Medicine Critical Care Medicine
DX: E61.1 Iron deficiency (principal)

== ENCOUNTER → 2023-09-07 | Outpatient (CLI) | payer MEDICARE, BC, OTHER ==
[~2023-09-07] MED LIST changes: -AMIT25TA17 PO; +AMIT25TA19 PO; -OCTR100I; +OCTR100I11
[2023-09-07 16:50] LABS: HEMATOCRIT 31.5 % (36.0-47.0); HEMOGLOBIN 9.8 g/dl (12.0-15.5); MEAN CORPUSCULAR HEMOGLOBIN 31.2 pg (27.0-33.0); MEAN CORPUSCULAR HGB CONC 31.1 g/dl (32.0-36.5); MEAN CORPUSCULAR VOLUME 100.3 fl (80.0-96.0); PLATELET COUNT, AUTOMATED 222 10^3/uL (150-450); RED BLOOD COUNT 3.14 10^6/uL (4.00-5.40); WHITE BLOOD COUNT 5.2 10^3/uL (4.0-10.0)
[2023-09-07 17:03] LABS: CALCIUM LEVEL 8.9 MG/DL (8.3-10.6); CREATININE FOR GFR 1.92 MG/DL (0.55-1.30); GLOMERULAR FILTRATION RATE 26.6 (>32); POTASSIUM SERUM 4.4 MMOL/L (3.5-5.1)
== END ==
LOC: M WUC 14:19
DX: E61.1 Iron deficiency (principal); I27.24 Chronic thromboembolic pulmonary hypertension

== ENCOUNTER → 2023-09-27 | Outpatient (CLI) | payer MEDICARE, BC, OTHER ==
[~2023-09-27] MED LIST changes: +ANAS1TAB2 PO
== END ==
LOC: M ONCR 14:29
PROVIDERS: ATTEND General Practice
DX: D05.12 Intraductal carcinoma in situ of left breast (principal); I27.20 Pulmonary hypertension, unspecified; Z71.2 Person consulting for explanation of examination or test findings; Z79.01 Long term (current) use of anticoagulants; Z79.51 Long term (current) use of inhaled steroids; Z79.899 Other long term (current) drug therapy; Z80.1 Family history of malignant neoplasm of trachea, bronchus and lung; Z80.3 Family history of malignant neoplasm of breast; Z88.0 Allergy status to penicillin; Z88.1 Allergy status to other antibiotic agents; Z88.5 Allergy status to narcotic agent; Z91.040 Latex allergy status; Z91.048 Other nonmedicinal substance allergy status

== ENCOUNTER → 2023-10-09 | Outpatient (REF) | payer MEDICARE, BC, OTHER ==
[2023-10-09 13:11] LABS: PERCENT SATURATION 17.6 % (13.2-45.0)
[2023-10-09 13:14] LABS: FERRITIN 944.2 NG/ML (7.3-270.7)
== END ==
LOC: M LAB REF 12:07
PROVIDERS: ATTEND Family Medicine
DX: D50.0 Iron deficiency anemia secondary to blood loss (chronic) (principal); I27.29 Other secondary pulmonary hypertension; I50.810 Right heart failure, unspecified

== ENCOUNTER → 2023-10-12 | Outpatient (CLI) | payer MEDICARE, BC, OTHER | LOC: M WHC 13:06 | PROVIDERS: ATTEND Internal Medicine Medical Oncology | DX: M81.0 Age-related osteoporosis without current pathological fracture (principal); Z13.820 Encounter for screening for osteoporosis ==

== ENCOUNTER → 2024-02-16 | Outpatient (REF) | payer MEDICARE, OTHER ==
[2024-02-16 17:23] LABS: HEMATOCRIT 32.5 % (36.0-47.0); HEMOGLOBIN 10.1 g/dl (12.0-15.5); MEAN CORPUSCULAR HEMOGLOBIN 31.9 pg (27.0-33.0); MEAN CORPUSCULAR HGB CONC 31.1 g/dl (32.0-36.5); MEAN CORPUSCULAR VOLUME 102.5 fl (80.0-96.0); PLATELET COUNT, AUTOMATED 266 10^3/uL (150-450); RED BLOOD COUNT 3.17 10^6/uL (4.00-5.40); WHITE BLOOD COUNT 5.6 10^3/uL (4.0-10.0)
[2024-02-16 17:38] LABS: CALCIUM LEVEL 9.2 MG/DL (8.3-10.6); CREATININE FOR GFR 1.58 MG/DL (0.55-1.30); GLOMERULAR FILTRATION RATE 33.2 (>32); POTASSIUM SERUM 4.5 MMOL/L (3.5-5.1)
[2024-02-16 17:41] LABS: FERRITIN 379.7 NG/ML (7.3-270.7)
== END ==
LOC: M LABWUC 16:19
PROVIDERS: ATTEND Internal Medicine Critical Care Medicine
DX: I27.29 Other secondary pulmonary hypertension (principal); I50.810 Right heart failure, unspecified; D50.0 Iron deficiency anemia secondary to blood loss (chronic)

== ENCOUNTER → 2025-03-04 | Outpatient (REF) | payer MEDICARE, BC, OTHER ==
[~2025-03-04] MED LIST changes: +EPIN0.055 OU; +FLUTISP; -OCTR100I11; +OCTR100I11 IM; +REST0.05 OU
[2025-03-04 19:41] LABS: PERCENT SATURATION 15.9 % (13.2-45.0)
== END ==
LOC: M LAB REF 17:38
PROVIDERS: ATTEND Internal Medicine Nephrology
DX: D50.9 Iron deficiency anemia, unspecified (principal)

== ENCOUNTER → 2025-03-17 | Outpatient (REF) | payer MEDICARE, BC, OTHER | LOC: M LAB REF 12:40 | PROVIDERS: ATTEND Family Medicine | DX: I50.32 Chronic diastolic (congestive) heart failure (principal); N18.4 Chronic kidney disease, stage 4 (severe) ==

== ENCOUNTER → 2025-07-30 | Outpatient (CLI) | payer MEDICARE, BC ==
[~2025-07-30] MED LIST changes: +LOPE1CAP5; +OCTR100I10; +TADA20TA29; +[UNRECOGNIZED DRUG - CODE]
[2025-07-30 17:32] LABS: CALCIUM LEVEL 10.2 MG/DL (8.3-10.6); CARBON DIOXIDE LEVEL 24.0 MMOL/L (20-31); CHLORIDE LEVEL 107.0 MMOL/L (98-107); CREATININE FOR GFR 2.03 MG/DL (0.55-1.30); GLOMERULAR FILTRATION RATE 23.8 (>32); POTASSIUM SERUM 4.5 MMOL/L (3.5-5.1); SODIUM LEVEL 142.0 MMOL/L (136-145)
[2025-07-30 17:34] LABS: PLATELET COUNT, AUTOMATED 310 10^3/uL (150-450)
== END ==
LOC: M WUC 13:57
PROVIDERS: ATTEND Internal Medicine Critical Care Medicine
DX: I27.29 Other secondary pulmonary hypertension (principal); D50.0 Iron deficiency anemia secondary to blood loss (chronic); I50.810 Right heart failure, unspecified

== ENCOUNTER → 2025-08-07 | Outpatient (REF) | payer MEDICARE, BC ==
[2025-08-07 19:25] LABS: IRON (FE) 38.0 UG/DL (50-170); PERCENT SATURATION 14.0 % (13.2-45.0)
== END ==
LOC: M LAB REF 17:02
PROVIDERS: ATTEND Internal Medicine Nephrology
DX: D50.9 Iron deficiency anemia, unspecified (principal)

== ENCOUNTER 2025-10-02 15:38 | Outpatient (CLI) | payer MEDICARE, BC ==
[~2025-10-02] VITALS: Ht 170.2 cm; Wt 61.3 kg
[~2025-10-02 15:38] MED LIST changes: +ALBUTEROL SULFATE 2.5 MG/0.5 ML INH CONCENTRATE NEB SOLN INH PRN; +EPINEPHrine INJ 1 MG/ML 1ML AMP IM PRN; +diphenhydrAMINE 50 MG/ML VIAL IV PRN
[2025-10-02] MEDS: FERRIC CARBOXYMALTOSE 750 MG (VIAL MATE) IN 100ML NS IV ONE (15:54)
[2025-10-02 16:00] VITALS: BP 134/62; O2SAT 98
== END 2025-10-02 16:29 | disposition home or self-care (01) ==
LOC: M INFU 15:38
DX: D50.0 Iron deficiency anemia secondary to blood loss (chronic) (principal); Z88.0 Allergy status to penicillin; Z88.5 Allergy status to narcotic agent; Z88.8 Allergy status to other drugs, medicaments and biological substances; Z91.89 Other specified personal risk factors, not elsewhere classified
CPT/HCPCS: 96365; J1439

== ENCOUNTER → 2025-10-09 | Outpatient (CLI) | payer MEDICARE, BC ==
[~2025-10-09] VITALS: Ht 170.2 cm; Wt 61.3 kg
[2025-10-09 15:35] VITALS: BP 137/62; O2SAT 98
[2025-10-09] MEDS: FERRIC CARBOXYMALTOSE 750 MG (VIAL MATE) IN 100ML NS IV ONE (15:48)
[2025-10-09 16:26] VITALS: BP 113/53; O2SAT 97
== END ==
LOC: M INFU 15:36
DX: D50.9 Iron deficiency anemia, unspecified (principal); Z88.0 Allergy status to penicillin; Z88.5 Allergy status to narcotic agent; Z88.8 Allergy status to other drugs, medicaments and biological substances
CPT/HCPCS: 96365; 96523; J1439

== ENCOUNTER 2025-11-05 15:48 | Outpatient (CLI) | payer MEDICARE, BC ==
[~2025-11-05] VITALS: Ht 160 cm; Wt 64.0 kg
[2025-11-05] MEDS: FERRIC CARBOXYMALTOSE 750 MG (VIAL MATE) IN 100ML NS IV ONE (16:18)
[2025-11-05 16:20] VITALS: BP 100/51; O2SAT 97
[2025-11-05 16:52] VITALS: BP 140/54; O2SAT 93
== END 2025-11-05 16:55 ==
LOC: M INFU 15:48
PROVIDERS: ATTEND Internal Medicine Medical Oncology
DX: D50.0 Iron deficiency anemia secondary to blood loss (chronic) (principal); Z88.0 Allergy status to penicillin; Z88.8 Allergy status to other drugs, medicaments and biological substances; Z88.5 Allergy status to narcotic agent; Z91.89 Other specified personal risk factors, not elsewhere classified
CPT/HCPCS: 96365; J1439